=== PATIENT | female | born 1955 | race Two or more races ===

== ENCOUNTER 2021-12-10 12:05 | Emergency (ER) | payer OTHER, MEDICAID ==
[~2021-12-10] VITALS: Ht 157.5 cm; Wt 65.0 kg
[2021-12-10] MEDS ORDERED: ACE3T PO (16:01)
[2021-12-10 16:08] VITALS: BP 138/83
== END 2021-12-10 16:44 | disposition home or self-care (01) ==
LOC: ER 12:05
DX: S46.911A Strain of unspecified muscle, fascia and tendon at shoulder and upper arm level, right arm, initial encounter (principal); S63.501A Unspecified sprain of right wrist, initial encounter; E11.9 Type 2 diabetes mellitus without complications; E78.5 Hyperlipidemia, unspecified; W01.0XXA Fall on same level from slipping, tripping and stumbling without subsequent striking against object, initial encounter; Y93.01 Activity, walking, marching and hiking; Y92.89 Other specified places as the place of occurrence of the external cause; Y99.8 Other external cause status
CPT/HCPCS: 73030; 73110